=== PATIENT | male | born 1950 | race African-American/Black ===

== ENCOUNTER 2021-04-07 10:16 | Inpatient (IN) | payer OTHER ==
[2021-04-07] MEDS ORDERED: VANCOMYCIN 1,000 MG in DEXTROSE 5%-WATER - 250 ML IVPB ONE (12:57)
[2021-04-07] MEDS ORDERED: PIPERACILLIN/TAZOB 4.5 GM 4.5 GM in DEXTROSE 5%-WATER 100 ML IVPB ONE (12:58)
[2021-04-07 13:12] LABS: VENOUS BASE EXCESS -0.1 mmol/L (-2-2); VENOUS O2 SATURATION 79.3 % (70-80); VENOUS PH 7.364 (7.310-7.410)
[2021-04-07 13:13] LABS: HEMATOCRIT 33.3 % (35.4-49); HEMOGLOBIN 10.8 GM/dL (11.7-16.9); MCH 26.1 pg (25.7-33.7); MCHC 32.6 g/dl (32.0-35.9); MEAN CELL VOLUME 80.2 fl (80-96); MEAN PLT VOLUME 8.5 fl (7.5-11.1); PLATELET COUNT 242 10^3/uL (134-434); RBC 4.14 M/mm3 (4.00-5.60); RDW 19.5 % (11.9-15.9); WHITE BLOOD COUNT 22.6 K/mm3 (4.0-10.0)
[2021-04-07] MEDS ORDERED: VANCOMYCIN 1 GRAM (PRE-DOCKED) 1,000 MG/250 ML BAG IVPB ONE (13:19)
[2021-04-07] MEDS ORDERED: PIPERACILLIN/TAZOB 4.5 GM 4.5 GM/100 ML BAG IVPB ONE (13:19)
[2021-04-07 13:25] LABS: INR 1.15 (0.83-1.09); PROTHROMBIN TIME (PATIENT) 13.3 SEC (9.7-13.0)
[2021-04-07 13:27] LABS: ACTIVATED PTT 27.9 SECONDS (25.2-36.5)
[2021-04-07 13:28] LABS: CHLORIDE 102 mmol/L (98-107); SODIUM 139 mmol/L (136-145)
[2021-04-07 13:31] LABS: CALCIUM 9.1 mg/dL (8.5-10.1)
[2021-04-07 13:32] LABS: ALBUMIN 2.6 g/dl (3.4-5.0); BLOOD UREA NITROGEN 42.8 mg/dL (7-18); CO2 24 mmol/L (21-32); GLUCOSE,RANDOM 250 mg/dL (74-106)
[2021-04-07 13:35] LABS: CREATININE 5.8 mg/dL (0.55-1.3); SGOT/AST 16 U/L (15-37); SGPT/ALT 26 U/L (13-61)
[2021-04-07 13:36] LABS: BILIRUBIN,TOTAL 0.5 mg/dL (0.2-1); TOT PROT 6.4 g/dl (6.4-8.2)
[2021-04-07 13:38] LABS: ALK PHOS 98 U/L (45-117)
[2021-04-07 13:42] LABS: ANION GAP 13 MMOL/L (8-16)
[2021-04-07] MEDS ORDERED: POTASSIUM CHLORIDE TABS 20 MEQ TABLET.ER (FP) PO ONE ×2 (14:59→15:18)
[2021-04-07] MEDS ORDERED: HEPARIN NA (PORCINE) 5,000 UNITS/ML 1ML VIAL SQ SCH (15:45)
[2021-04-07 16:04] LABS: ANISOCYTOSIS 2+; MACROCYTOSIS 0; PLATELET ESTIMATE NORMAL; TARGET CELLS 2+; TEAR DROP CELLS 1+
[2021-04-07] MEDS ORDERED: SODIUM CHLORIDE 250 ML IV PRN ×2 (17:07→23:28)
[2021-04-07] MEDS ORDERED: HEPARIN NA (PORCINE) 5,000 UNITS/ML 1ML VIAL ONE (17:51)
[2021-04-07] MEDS: INSULIN SLIDING SCALE (NOVOLOG) 1 VIAL SQ SCH (17:57)
[2021-04-07] MEDS ORDERED: CLINDAMYCIN 900 MG PREMIX IVPB 900 MG/50 ML BAG IVPB SCH (19:00)
[2021-04-07] MEDS ORDERED: SODIUM CHLORIDE 1,000 ML IV SCH ×2 (19:15→23:28)
[2021-04-07] MEDS ORDERED: LIDOCAINE HCL 2% (20ML MULTI-DOSE VIAL) ONE ×2 (21:54→22:09)
[2021-04-07] MEDS ORDERED: BUPIVACAINE HCL/PF 0.5% (5MG/ML) 10 ML VIAL ONE (21:54)
[2021-04-07] MEDS ORDERED: LIDOCAINE HCL 2% (50ML VIAL) INF ONE (22:12)
[2021-04-07] MEDS ORDERED: BUPIVACAINE HCL/PF 0.5% (5 MG/ML) 30 ML VIAL IJ ONE (22:56)
[2021-04-08] MEDS: INSULIN SLIDING SCALE (NOVOLOG) 1 VIAL SQ SCH ×5 (00:43→22:12)
[2021-04-08 01:00] VITALS: BMI 19.3
[2021-04-08] MEDS ORDERED: PIPERACILLIN/TAZOBACTAM 2.25 GM VIAL IVPB ONE ×3 (01:27→18:45)
[2021-04-08] MEDS ORDERED: DEXTROSE 5%-WATER - 50 ML IVPB ONE ×3 (01:27→18:46)
[2021-04-08] MEDS: PIPERACILLIN/TAZOB 2.25 GM 2.25 GM in DEXTROSE 5%-WATER - 50 ML IVPB SCH ×4 (01:29→20:37)
[2021-04-08] MEDS: oxyCODONE HCL 5 MG TABLET PO PRN ×2 (01:29→16:40)
[2021-04-08] MEDS: CLINDAMYCIN 900 MG PREMIX IVPB 900 MG/50 ML BAG IVPB SCH ×3 (01:30→20:38)
[2021-04-08] MEDS ORDERED: PIPERACILLIN/TAZOB 2.25 GM 2.25 GM in DEXTROSE 5%-WATER - 50 ML IVPB SCH (02:00)
[2021-04-08 09:34] LABS: BASO % 0.2 % (0-2.0); EOS % 0.3 % (0-4.5); HEMATOCRIT 30.7 % (35.4-49); HEMOGLOBIN 9.7 GM/dL (11.7-16.9); LYMPH % 6.9 % (8-40); MCH 25.7 pg (25.7-33.7); MCHC 31.7 g/dl (32.0-35.9); MEAN CELL VOLUME 81.2 fl (80-96); MEAN PLT VOLUME 8.6 fl (7.5-11.1); MONO % 4.9 % (3.8-10.2); NEUT % 87.7 % (42.8-82.8); PLATELET COUNT 217 10^3/uL (134-434); RBC 3.79 M/mm3 (4.00-5.60); RDW 19.2 % (11.9-15.9); WHITE BLOOD COUNT 14.5 K/mm3 (4.0-10.0)
[2021-04-08 09:53] LABS: CHLORIDE 102 mmol/L (98-107); SODIUM 139 mmol/L (136-145)
[2021-04-08] MEDS ORDERED: VANCOMYCIN 1 GM in D5W (PRE-DOCKED) 1,000 MG/250 ML IVPB SCH ×2 (10:00→14:00)
[2021-04-08 10:01] LABS: CALCIUM 8.4 mg/dL (8.5-10.1)
[2021-04-08 10:02] LABS: ALBUMIN 2.1 g/dl (3.4-5.0); BLOOD UREA NITROGEN 52.9 mg/dL (7-18); CO2 24 mmol/L (21-32); GLUCOSE,RANDOM 110 mg/dL (74-106); MAGNESIUM 2.1 mg/dL (1.8-2.4)
[2021-04-08 10:04] LABS: SGPT/ALT 22 U/L (13-61)
[2021-04-08 10:05] LABS: CREATININE 6.5 mg/dL (0.55-1.3); PHOSPHOROUS 7.3 mg/dL (2.5-4.9); SGOT/AST 11 U/L (15-37)
[2021-04-08 10:06] LABS: BILIRUBIN,TOTAL 0.5 mg/dL (0.2-1); TOT PROT 5.3 g/dl (6.4-8.2)
[2021-04-08 10:07] LABS: ALK PHOS 73 U/L (45-117)
[2021-04-08 10:12] LABS: ANION GAP 13 MMOL/L (8-16)
[2021-04-08] MEDS ORDERED: POTASSIUM CHLORIDE TABS 20 MEQ TABLET.ER (FP) PO ONE ×2 (10:49→12:45)
[2021-04-08] MEDS ORDERED: INSULIN (LEVEMIR) 100 UNITS/ML UNITS SQ ONE ×2 (12:57→13:07)
[2021-04-08] MEDS: KCL 10 MEQ IVPB 10 MEQ/100 ML INFUS.BAG IVPB SCH ×2 (12:59→15:34)
[2021-04-08] MEDS: INSULIN (LEVEMIR) 100 UNITS/ML UNITS SQ SCH ×2 (12:59→22:11)
[2021-04-08] MEDS ORDERED: oxyCODONE HCL 5 MG TABLET PO PRN (14:39)
[2021-04-08] MEDS ORDERED: HEPARIN NA (PORCINE) 5,000 UNITS/ML 1ML VIAL IVPUSH ONE ×2 (17:07→18:00)
[2021-04-08] MEDS ORDERED: HYDROXYCHLOROQUINE SO4 200 MG TABLET (FP) PO SCH (17:30)
[2021-04-08] MEDS ORDERED: EPOETIN ALFA-EPBX 4,000 UNIT/ML VIAL SQ ONE (18:00)
[2021-04-08] MEDS ORDERED: SODIUM CHLORIDE 250 ML IV PRN (18:00)
[2021-04-08 19:26] LABS: BLOOD UREA NITROGEN 46.1 mg/dL (7-18); CALCIUM 8.5 mg/dL (8.5-10.1)
[2021-04-08 19:31] LABS: CREATININE 5.3 mg/dL (0.55-1.3)
[2021-04-08] MEDS ORDERED: VANCOMYCIN 1 GRAM (PRE-DOCKED) 1,000 MG/250 ML BAG IVPB ONE (19:34)
[2021-04-08] MEDS: HYDROXYCHLOROQUINE SO4 200 MG TABLET (FP) PO SCH (22:11)
[2021-04-08] MEDS: HEPARIN NA (PORCINE) 5,000 UNITS/ML 1ML VIAL SQ SCH (22:11)
[2021-04-09] MEDS ORDERED: PIPERACILLIN/TAZOBACTAM 2.25 GM VIAL IVPB ONE ×3 (01:12→16:50)
[2021-04-09] MEDS ORDERED: DEXTROSE 5%-WATER - 50 ML IVPB ONE ×3 (01:13→16:50)
[2021-04-09] MEDS: CLINDAMYCIN 900 MG PREMIX IVPB 900 MG/50 ML BAG IVPB SCH ×3 (01:40→17:03)
[2021-04-09] MEDS: PIPERACILLIN/TAZOB 2.25 GM 2.25 GM in DEXTROSE 5%-WATER - 50 ML IVPB SCH ×5 (03:03→17:03)
[2021-04-09] MEDS: HEPARIN NA (PORCINE) 5,000 UNITS/ML 1ML VIAL SQ SCH ×3 (06:24→21:22)
[2021-04-09] MEDS: INSULIN (LEVEMIR) 100 UNITS/ML UNITS SQ SCH (06:24)
[2021-04-09] MEDS: INSULIN SLIDING SCALE (NOVOLOG) 1 VIAL SQ SCH ×4 (06:25→21:28)
[2021-04-09] MEDS: oxyCODONE HCL 5 MG TABLET PO PRN ×3 (07:19→17:02)
[2021-04-09 08:36] LABS: HEMOGLOBIN 9.5 GM/dL (11.7-16.9); MCH 26.3 pg (25.7-33.7); MCHC 32.6 g/dl (32.0-35.9); MEAN CELL VOLUME 80.5 fl (80-96); MEAN PLT VOLUME 7.9 fl (7.5-11.1); PLATELET COUNT 223 10^3/uL (134-434); RDW 19.7 % (11.9-15.9); WHITE BLOOD COUNT 19.3 K/mm3 (4.0-10.0)
[2021-04-09 08:56] LABS: CHLORIDE 101 mmol/L (98-107); SODIUM 139 mmol/L (136-145)
[2021-04-09 09:05] LABS: BLOOD UREA NITROGEN 53.8 mg/dL (7-18); CALCIUM 8.1 mg/dL (8.5-10.1); MAGNESIUM 1.6 mg/dL (1.8-2.4)
[2021-04-09 09:07] LABS: BILIRUBIN,TOTAL 0.5 mg/dL (0.2-1); TOT PROT 5.3 g/dl (6.4-8.2)
[2021-04-09 09:08] LABS: ALK PHOS 78 U/L (45-117); CREATININE 5.9 mg/dL (0.55-1.3); CREATININE 6.1 mg/dL (0.55-1.3); PHOSPHOROUS 6.1 mg/dL (2.5-4.9)
[2021-04-09 09:09] LABS: BLOOD UREA NITROGEN 50.2 mg/dL (7-18); CALCIUM 8.3 mg/dL (8.5-10.1); GLUCOSE,RANDOM 69 mg/dL (74-106); IRON SERUM 52 ug/dL (50-175); SGOT/AST 16 U/L (15-37); SGPT/ALT 25 U/L (13-61)
[2021-04-09 09:10] LABS: ANION GAP 13 MMOL/L (8-16); CO2 25 mmol/L (21-32); TOTAL IRON BINDING CAPACITY 81 ug/dL (250-450)
[2021-04-09] MEDS: DOCUSATE SODIUM 100 MG CAPSULE (FP) PO SCH (10:09)
[2021-04-09] MEDS ORDERED: POTASSIUM CHLORIDE TABS 20 MEQ TABLET.ER (FP) PO ONE (17:20)
[2021-04-09] MEDS ORDERED: SODIUM CHLORIDE 250 ML IV PRN (17:23)
[2021-04-10] MEDS ORDERED: PIPERACILLIN/TAZOBACTAM 2.25 GM VIAL IVPB ONE ×3 (01:37→16:32)
[2021-04-10] MEDS ORDERED: DEXTROSE 5%-WATER - 50 ML IVPB ONE ×3 (01:38→16:32)
[2021-04-10] MEDS: CLINDAMYCIN 900 MG PREMIX IVPB 900 MG/50 ML BAG IVPB SCH ×3 (01:44→17:15)
[2021-04-10] MEDS: PIPERACILLIN/TAZOB 2.25 GM 2.25 GM in DEXTROSE 5%-WATER - 50 ML IVPB SCH ×3 (01:44→17:15)
[2021-04-10] MEDS: HEPARIN NA (PORCINE) 5,000 UNITS/ML 1ML VIAL SQ SCH ×3 (07:00→21:35)
[2021-04-10] MEDS: INSULIN SLIDING SCALE (NOVOLOG) 1 VIAL SQ SCH ×4 (07:04→21:36)
[2021-04-10 09:07] LABS: HEMATOCRIT 32.7 % (35.4-49); HEMOGLOBIN 10.4 GM/dL (11.7-16.9); MCH 25.7 pg (25.7-33.7); MCHC 31.8 g/dl (32.0-35.9); MEAN CELL VOLUME 80.8 fl (80-96); MEAN PLT VOLUME 8.4 fl (7.5-11.1); PLATELET COUNT 261 10^3/uL (134-434); RBC 4.05 M/mm3 (4.00-5.60); RDW 19.7 % (11.9-15.9); WHITE BLOOD COUNT 23.1 K/mm3 (4.0-10.0)
[2021-04-10 09:49] LABS: CALCIUM 8.7 mg/dL (8.5-10.1); MAGNESIUM 1.9 mg/dL (1.8-2.4)
[2021-04-10 09:52] LABS: CREATININE 7.2 mg/dL (0.55-1.3); PHOSPHOROUS 8.2 mg/dL (2.5-4.9)
[2021-04-10] MEDS: DOCUSATE SODIUM 100 MG CAPSULE (FP) PO SCH (10:00)
[2021-04-10] MEDS: VITAMIN B COMP W-C 1 EA TABLET (NEPHRO-VITE) PO SCH (10:00)
[2021-04-10] MEDS ORDERED: EPOETIN ALFA-EPBX 4,000 UNIT/ML VIAL IVPUSH ONE (11:00)
[2021-04-10] MEDS: HEPARIN NA (PORCINE) 5,000 UNITS/ML 1ML VIAL IVPUSH ONE ×2 (12:12→17:25)
[2021-04-11] MEDS ORDERED: DEXTROSE 5%-WATER - 50 ML IVPB ONE ×3 (01:16→17:50)
[2021-04-11] MEDS ORDERED: PIPERACILLIN/TAZOBACTAM 2.25 GM VIAL IVPB ONE ×3 (01:16→17:50)
[2021-04-11] MEDS: PIPERACILLIN/TAZOB 2.25 GM 2.25 GM in DEXTROSE 5%-WATER - 50 ML IVPB SCH ×3 (01:20→17:52)
[2021-04-11] MEDS: MELATONIN 5 MG TABLETS PO PRN ×2 (01:20→22:11)
[2021-04-11] MEDS: INSULIN SLIDING SCALE (NOVOLOG) 1 VIAL SQ SCH ×4 (06:12→22:10)
[2021-04-11] MEDS: HEPARIN NA (PORCINE) 5,000 UNITS/ML 1ML VIAL SQ SCH ×3 (06:12→22:04)
[2021-04-11 09:22] LABS: HEMOGLOBIN 9.1 GM/dL (11.7-16.9); MCH 25.6 pg (25.7-33.7); MCHC 31.5 g/dl (32.0-35.9); MEAN CELL VOLUME 81.3 fl (80-96); MEAN PLT VOLUME 8.5 fl (7.5-11.1); PLATELET COUNT 279 10^3/uL (134-434); RBC 3.57 M/mm3 (4.00-5.60); RDW 19.4 % (11.9-15.9)
[2021-04-11 09:27] LABS: WHITE BLOOD COUNT 21.5 K/mm3 (4.0-10.0)
[2021-04-11] MEDS ORDERED: PT OWN MED DRAWER 7, Y5N ONE (09:56)
[2021-04-11] MEDS: DOCUSATE SODIUM 100 MG CAPSULE (FP) PO SCH (10:00)
[2021-04-11] MEDS: HYDROXYCHLOROQUINE SO4 200 MG TABLET (FP) PO SCH (10:00)
[2021-04-11] MEDS: VITAMIN B COMP W-C 1 EA TABLET (NEPHRO-VITE) PO SCH (10:00)
[2021-04-11 10:02] LABS: BLOOD UREA NITROGEN 47.2 mg/dL (7-18); CALCIUM 8.6 mg/dL (8.5-10.1); CREATININE 5.2 mg/dL (0.55-1.3); MAGNESIUM 1.8 mg/dL (1.8-2.4); PHOSPHOROUS 5.8 mg/dL (2.5-4.9)
[2021-04-11 14:56] LABS: TOT PROT 5.4 g/dl (6.4-8.2)
[2021-04-11 15:01] LABS: BILIRUBIN,TOTAL 1.6 mg/dL (0.2-1)
[2021-04-11 15:22] LABS: BILIRUBIN,DIRECT 0.2 mg/dL (0.0-0.2)
[2021-04-11 17:06] LABS: ALBUMIN 1.8 g/dl (3.4-5.0)
[2021-04-11 17:08] LABS: BILIRUBIN,DIRECT 0.2 mg/dL (0.0-0.2)
[2021-04-11 17:10] LABS: TOT PROT 5.3 g/dl (6.4-8.2)
[2021-04-11 17:11] LABS: BILIRUBIN,TOTAL 0.6 mg/dL (0.2-1)
[2021-04-11] MEDS ORDERED: INSULIN (NOVOLOG) ASPART 100 UNITS/ML 10ML VIAL ONE (21:30)
[2021-04-12] MEDS: PIPERACILLIN/TAZOB 2.25 GM 2.25 GM in DEXTROSE 5%-WATER - 50 ML IVPB SCH ×3 (01:58→17:36)
[2021-04-12] MEDS ORDERED: PIPERACILLIN/TAZOBACTAM 2.25 GM VIAL IVPB ONE ×3 (02:19→17:09)
[2021-04-12] MEDS ORDERED: DEXTROSE 5%-WATER - 50 ML IVPB ONE ×3 (02:19→17:09)
[2021-04-12] MEDS: HEPARIN NA (PORCINE) 5,000 UNITS/ML 1ML VIAL SQ SCH ×3 (06:15→21:43)
[2021-04-12] MEDS: INSULIN SLIDING SCALE (NOVOLOG) 1 VIAL SQ SCH ×4 (06:15→21:40)
[2021-04-12 08:24] LABS: HEMATOCRIT 29.2 % (35.4-49); HEMOGLOBIN 9.7 GM/dL (11.7-16.9); MCH 26.6 pg (25.7-33.7); MCHC 33.4 g/dl (32.0-35.9); MEAN CELL VOLUME 79.7 fl (80-96); MEAN PLT VOLUME 8.1 fl (7.5-11.1); PLATELET COUNT 320 10^3/uL (134-434); RBC 3.66 M/mm3 (4.00-5.60)
[2021-04-12 08:39] LABS: CALCIUM 8.9 mg/dL (8.5-10.1)
[2021-04-12 08:40] LABS: BLOOD UREA NITROGEN 61.4 mg/dL (7-18); MAGNESIUM 2.1 mg/dL (1.8-2.4)
[2021-04-12 08:42] LABS: CREATININE 6.4 mg/dL (0.55-1.3)
[2021-04-12 08:43] LABS: PHOSPHOROUS 7.2 mg/dL (2.5-4.9)
[2021-04-12 08:44] LABS: BILIRUBIN,TOTAL 0.8 mg/dL (0.2-1); TOT PROT 5.7 g/dl (6.4-8.2)
[2021-04-12] MEDS: VITAMIN B COMP W-C 1 EA TABLET (NEPHRO-VITE) PO SCH (10:16)
[2021-04-12] MEDS: DOCUSATE SODIUM 100 MG CAPSULE (FP) PO SCH (10:17)
[2021-04-12] MEDS ORDERED: SODIUM CHLORIDE 250 ML IV PRN (14:00)
[2021-04-12] MEDS ORDERED: EPOETIN ALFA-EPBX 4,000 UNIT/ML VIAL SQ ONE (14:00)
[2021-04-12] MEDS ORDERED: oxyCODONE HCL 5 MG TABLET PO PRN ×2 (16:37)
[2021-04-13] MEDS ORDERED: PIPERACILLIN/TAZOBACTAM 2.25 GM VIAL IVPB ONE ×2 (01:26→09:16)
[2021-04-13] MEDS ORDERED: DEXTROSE 5%-WATER - 50 ML IVPB ONE ×2 (01:26→09:16)
[2021-04-13] MEDS: PIPERACILLIN/TAZOB 2.25 GM 2.25 GM in DEXTROSE 5%-WATER - 50 ML IVPB SCH ×2 (01:45→09:54)
[2021-04-13] MEDS: HEPARIN NA (PORCINE) 5,000 UNITS/ML 1ML VIAL SQ SCH (06:06)
[2021-04-13] MEDS: INSULIN SLIDING SCALE (NOVOLOG) 1 VIAL SQ SCH ×2 (06:13→11:54)
[2021-04-13] MEDS ORDERED: INSULIN (NOVOLOG) ASPART 100 UNITS/ML 10ML VIAL ONE (06:37)
[2021-04-13 09:45] LABS: BASO % 0.4 % (0-2.0); EOS % 0.1 % (0-4.5); HEMATOCRIT 30.9 % (35.4-49); HEMOGLOBIN 9.6 GM/dL (11.7-16.9); LYMPH % 4.6 % (8-40); MCH 25.5 pg (25.7-33.7); MEAN CELL VOLUME 82.2 fl (80-96); MEAN PLT VOLUME 8.1 fl (7.5-11.1); MONO % 5.9 % (3.8-10.2); PLATELET COUNT 371 10^3/uL (134-434); RBC 3.76 M/mm3 (4.00-5.60); RDW 19.9 % (11.9-15.9); WHITE BLOOD COUNT 21.7 K/mm3 (4.0-10.0)
[2021-04-13] MEDS: VITAMIN B COMP W-C 1 EA TABLET (NEPHRO-VITE) PO SCH (09:55)
[2021-04-13] MEDS: HYDROXYCHLOROQUINE SO4 200 MG TABLET (FP) PO SCH (09:55)
[2021-04-13 10:02] LABS: BLOOD UREA NITROGEN 41.3 mg/dL (7-18); CALCIUM 8.9 mg/dL (8.5-10.1)
[2021-04-13] MEDS: DOCUSATE SODIUM 100 MG CAPSULE (FP) PO SCH (10:03)
[2021-04-13 10:05] LABS: CREATININE 4.6 mg/dL (0.55-1.3)
[2021-04-13 10:07] LABS: CARCINOEMBRYONIC ANTIGEN 9.7 ng/mL (0.0-4.7)
[2021-04-13 12:28] LABS: ANISOCYTOSIS 1+; MACROCYTOSIS 0; PLATELET ESTIMATE NORMAL; TARGET CELLS 1+
[2021-04-13 13:42] VITALS: BP 152/72; PULSE 93; TEMP 98.2
[2021-04-13] MEDS ORDERED: SODIUM CHLORIDE 250 ML IV PRN (13:43)
[2021-04-13] MEDS ORDERED: LATANOPROST 0.005% OPHTH SOLN 2.5ML BOTTLE OU SCH (22:00)
[2021-04-14] MEDS ORDERED: EPOETIN ALFA-EPBX 10,000 UNIT/ML VIAL IVPUSH ONE (13:43)
== END 2021-04-13 15:03 | disposition short-term general hospital (02) | DRG 239 ==
LOC: JER 10:16 → JERBED 14:21 → J8W 04-08 00:15
PROVIDERS: ADMIT Internal Medicine
PROC: 0Y6N0Z9 Detachment at Left Foot, Partial 1st Ray, Open Approach (ICD-10-PCS; principal; 2021-04-07)
PROC: 0Y6N0ZB Detachment at Left Foot, Partial 2nd Ray, Open Approach (ICD-10-PCS; 2021-04-07)
PROC: 0Y6N0ZC Detachment at Left Foot, Partial 3rd Ray, Open Approach (ICD-10-PCS; 2021-04-07)
PROC: 0Y6N0ZD Detachment at Left Foot, Partial 4th Ray, Open Approach (ICD-10-PCS; 2021-04-07)
PROC: 0Y6N0ZF Detachment at Left Foot, Partial 5th Ray, Open Approach (ICD-10-PCS; 2021-04-07)
PROC: 5A1D90Z Performance of Urinary Filtration, Continuous, Greater than 18 hours Per Day (ICD-10-PCS; 2021-04-07)
DX: E11.52 Type 2 diabetes mellitus with diabetic peripheral angiopathy with gangrene (principal); N18.6 End stage renal disease; M72.6 Necrotizing fasciitis; I96 Gangrene, not elsewhere classified; I12.0 Hypertensive chronic kidney disease with stage 5 chronic kidney disease or end stage renal disease; L03.116 Cellulitis of left lower limb; K86.3 Pseudocyst of pancreas; K86.1 Other chronic pancreatitis; M86.172 Other acute osteomyelitis, left ankle and foot; I45.10 Unspecified right bundle-branch block; I44.4 Left anterior fascicular block; E87.6 Hypokalemia; D64.9 Anemia, unspecified; E11.22 Type 2 diabetes mellitus with diabetic chronic kidney disease; Z99.2 Dependence on renal dialysis; R93.2 Abnormal findings on diagnostic imaging of liver and biliary tract; K83.9 Disease of biliary tract, unspecified; E78.5 Hyperlipidemia, unspecified; K86.89 Other specified diseases of pancreas; I35.0 Nonrheumatic aortic (valve) stenosis; E11.69 Type 2 diabetes mellitus with other specified complication
CPT/HCPCS: 36415; 71046-TC-FY; 73630-TC-LT; 74181-TC; 75635-TC; 78452-TC; 80048; 80053; 80061; 80076; 82150; 82378; 82728; 82787; 82803; 82962; 83036; 83540; 83550; 83605; 83690; 83735; 84100; 84153; 84443; 84466; 85025; 85027; 85610; 85730; 86140; 86301; 86803; 86850; 86900; 86901; 87040; 87070; 87075; 87186; 87205; 87340; 88305-TC; 88311-TC; 93005; 93010; 93017; 93306-TC; 94760; 97116-GP; 97162-GP; 99285-25; A9502; C1887; C9803-CS; G0480; J1644; J2785; Q5106; Q9967; U0003; U0005